=== PATIENT | male | born 1960 | race Caucasian/White ===

== ENCOUNTER 2025-06-23 19:06 | Emergency (ER) | payer OTHER, SELFPAY ==
[2025-06-23 19:06] VITALS: BP 176/91; PULSE 66; RESP 14; TEMP 36.6; O2SAT 99; BMI 25.2
--- NOTE | 2025-06-23 19:38 | EKG12_ITS ---
Test Reason : DYSRHYTHMIA Blood Pressure : */* mmHG Vent. Rate : 64 BPM Atrial Rate : 64 BPM P-R Int : 188 ms QRS Dur : 164 ms QT Int : 452 ms P-R-T Axes : 63 92 44 degrees QTcB Int : 466 ms Normal sinus rhythm Right bundle branch block Abnormal ECG Confirmed by ALEJANDRO GAR, CONNOR ([id number]), editor department AGA LEVI ([id number]) on 06/24/2025 11:00:28 AM Referred By: Confirmed By: CONNOR ALLEN MD
--- NOTE | 2025-06-23 19:41 | PCA ---
NO OLD EKG
[2025-06-23 20:00] VITALS: BP 185/100; BP 187/83; BP 191/93; PULSE 64; PULSE 71; PULSE 88
[2025-06-23 20:03] VITALS: BP 187/83; PULSE 62; RESP 14; O2SAT 99
[2025-06-23 20:06] LABS: Hematocrit 40.3 % (40-54); Hemoglobin 13.4 g/dL (13.0-16.5); Immature Granulocytes Count 0.020 X10^3/uL (0.0-0.0); Mean Corp Hgb Conc 33.3 g/dL (32-36); Mean Corpuscular Volume 84.0 fL (80-94); Mean Platelet Vol. 9.4 fl (6.2-12.0); NRBC Flagged by Analyzer 0 % (0-5); Platelet Count 290 K/mm3 (150-450); RBC Distribution Width CV 13.9 % (11.6-14.6); RBC Distribution Width SD 42.8 fl (35.1-43.9); Red Blood Count 4.80 M/mm3 (4.6-6.2); White Blood Count 8.2 K/mm3 (4.4-11.0)
[2025-06-23] MEDS: 0.9% Normal Saline (1000mL) 1,000 ML 1000 ML IV (20:10)
--- NOTE | 2025-06-23 20:36 | EX.ED.DYSGE1 ---
HPI History of Present Illness Chief Complaint: Weakness Detail of Chief Complaint: Generalized weakness, near syncope Informant: patient Onset/Context/Timing Onset: Hours Context: Sudden Onset Timing: Continuous Quality: Feels dizzy, which he cannot define Location: Not applicable Current Severity: Gone Maximum Severity: Moderate Worsened by: Upright and walking Relieved by: Resting and sitting on examination cot Associated Symptoms Associated Symptoms: Patient has not eaten all day Narrative Narrative: Patient is a 64-year-old male. He has not seen a physician in 15 to 20 years. He was at the [employer]. He walks several miles. He had a banana. He states he was dizzy . He is unable to define what dizzy means. He was asked if it is lightheadedness, he or the area spinning. He states it is none of those. He denies double vision, blurred vision or loss of vision. He no trouble with speech or swallowing. He denied numbness or tingling his upper or lower extremities. He denied weakness in his upper or lower extremities. He states he has some mild congestion. He denies rhinorrhea, postnasal drainage or sore throat. He denies cough or shortness of breath. He denies chest pain, pressure, tightness or heaviness. He denies pain with breathing. He has no history of VTE or risk factors. He denies abdominal pain. Did have nausea without vomiting or diarrhea. He denies urologic symptoms. He denies rash. He does endorse thirst, dry mouth. He states he had a banana with no improvement. Prior similar symptoms: No Recent Illness/Hospitalization: No PFSH PFSH Medical History no medical history no medical history Allergy/AdvReac Type Severity Reaction Status Date / Time No Known Allergies Allergy Verified 06/23/25 19:09 Surgical History no surgical history no surgical history Social History Smoking Status: Current every day smoker tobacco type: cigarettes ROS ROS ED Constitutional Constitutional ED: Denies chills, fever(s), subjective, sweats or weight loss Eyes Eyes: Denies blurry vision or change in vision ENT ENT ED: Denies ear pain, rhinorrhea or sore throat Cardiovascular Cardiovascular: Denies chest pain, palpitations or racing heartbeat Respiratory/Chest Respiratory/Chest: Denies cough, dyspnea or dyspnea on exertion Gastrointestinal Gastrointestinal: Reports nausea; Denies abdominal pain, diarrhea, melena or vomiting Genitourinary Genitourinary ED: Denies dysuria, hematuria or urinary frequency Musculoskeletal Musculoskeletal: Denies arthralgias, back pain or myalgias Integumentary Denies rash Neurologic Neurologic: Reports weakness; Denies headache(s) or paresthesias Psychiatric Psychiatric: Denies anxiety or depression Endocrine Endocrinology: Denies cold intolerance or heat intolerance Hematologic/Lymphatic Hematologic/Lymphatic: Reports systems reviewed and no addt'l complaints, except as documented EXAM Physical Exam Const Vital Signs: 06/23/25 19:06 06/23/25 19:17 06/23/25 20:00 Temperature 98 F Temperature Source Temporal Pulse Rate 66 Pulse Rate [Lying] 64 Pulse Rate [Sitting (for 1 minute prior to obtaining)] 71 Pulse Rate [Standing (for 1 minute prior to obtaining)] 88 Respiratory Rate 14 Respiratory Effort Normal Non-Labored Respiratory Pattern Normal Blood Pressure 176/91 H Blood Pressure [Lying] 185/100 H Blood Pressure [Sitting (for 1 minute prior to obtaining)] 191/93 H Blood Pressure [Standing (for 1 minute prior to obtaining)] 187/83 H Blood Pressure Mean 119 Blood Pressure Mean [Lying] 128 Blood Pressure Mean [Sitting (for 1 minute prior to obtaining)] 125 Blood Pressure Mean [Standing (for 1 minute prior to obtaining)] 117 Pulse Ox 99 Oxygen Delivery Method Room Air 06/23/25 20:03 Temperature Temperature Source Pulse Rate 62 Pulse Rate [Lying] Pulse Rate [Sitting (for 1 minute prior to obtaining)] Pulse Rate [Standing (for 1 minute prior to obtaining)] Respiratory Rate 14 Respiratory Effort Respiratory Pattern Blood Pressure 187/83 H Blood Pressure [Lying] Blood Pressure [Sitting (for 1 minute prior to obtaining)] Blood Pressure [Standing (for 1 minute prior to obtaining)] Blood Pressure Mean 117 Blood Pressure Mean [Lying] Blood Pressure Mean [Sitting (for 1 minute prior to obtaining)] Blood Pressure Mean [Standing (for 1 minute prior to obtaining)] Pulse Ox 99 Oxygen Delivery Method Positive well nourished and well developed Constitutional Narrative: Vital signs are remarkable elevated blood pressure and there is no change in heart rate. Ortho's were negative. General Appearance ED: well developed and NAD; Negative for cyanotic or diaphoretic HEENT Reports dry mucous membranes HEENT Narrative: Head is atraumatic and normocephalic. Ears are normal. Nares are patent. Mouth ED: Yes dry mucous membranes Mouth: dry mucous membranes Eyes PERRL and EOMs intact bilaterally General Eye ED: Negative for pale conjunctiva or scleral icterus Neck supple and no JVD Resp normal respiratory effort and clear to auscultation bilaterally Cardio regular rate, regular rhythm, S1 normal heart sound, S2 normal heart sound and no murmurs GI normal to inspection, nondistended, normoactive bowel sounds, non-tender, non-distended and no masses; Negative for hepatosplenomegaly GI Narrative: There is no palpable pulsatile mass. Back/Spine no CVA tenderness Extremity normal to inspection Extremity Narrative: Venous stasis dermatitis. He denies orthopnea. He does admit to sleeping in a chair at night when he falls asleep. General Extremety ED: Yes edema General Extremity: edema Neuro oriented x3, CN's II-XII intact bilaterally and no sensory deficits noted Sensorium / Orientation: alert Motor Exam: strength 5/5 throughout Psych mental status grossly normal Skin No no rashes or lesions noted, no wounds and skin turgor normal Skin Narrative: Venous stasis dermatitis and dry skin lower extremity MDM MDM MDM Narrative Medical decision making narrative: Suspect patient may be slightly dehydrated and lightheaded because he did not having to eat or drink the entire day and was at a [place]. Since he has not seen a physician in 15 years and is no records of anything available we will obtain CBC to assess H&H. Electrolyte panel assess electrolytes, renal function CO2 anion gap. Orthostatic vital signs. He will receive 1 L of normal saline Lab Data Attestation: I reviewed the patient's lab results. Lab results narrative: CBC is normal. BMP is normal. Total protein is slightly elevated 8.7. Labs: Laboratory Results - last 24 hr 06/23/25 19:50 WBC 8.2 RBC 4.80 Hgb 13.4 Hct 40.3 MCV 84.0 MCH 27.9 MCHC 33.3 RDW Std Deviation 42.8 RDW Coeff of Theodora 13.9 Plt Count 290 MPV 9.4 Immature Gran % (Auto) 0.200 Neut % (Auto) 60.8 Lymph % (Auto) 26.7 [place] % (Auto) 7.9 Eos % (Auto) 3.4 Baso % (Auto) 1.0 Absolute Neuts (auto) 5.0 Absolute Lymphs (auto) 2.19 Nucleated RBC % 0 Sodium 137 Potassium 4.3 Chloride 100 Carbon Dioxide 26.7 Anion Gap 10 BUN 13 Creatinine 0.87 Estim Creat Clear Calc 99.73 Est GFR (MDRD) Non-Af 96 BUN/Creatinine Ratio 14.9 Glucose 98 Calcium 9.4 Total Bilirubin 0.37 AST 28 ALT 13 Alkaline Phosphatase 115 Total Protein 8.7 H Albumin 4.0 Globulin 4.7 H Albumin/Globulin Ratio 0.9 Treatment and Re-Evaluation :: Patient's blood pressure is elevated. Since he does not have a physician he was referred to Dr. Huertas. Discharge Plan Triage Chief Complaint: Weakness ED Provider: Alexander Mckay Dx/Rx/DC Orders Clinical Impression: Dizziness, Elevated blood-pressure reading without diagnosis of hypertension, Dehydration, mild Instructions: ED Dizziness, Uncertain Cause, ED Hypertension, To Be Confirmed Primary Care Provider: Care Physician,No Primary Referrals: Julianna Huertas DO [Med Staff - Active Staff, Family Practice] - 1 Week Care Physician,No Primary [Primary Care Provider, Medical] Activity Restrictions/Additional Instructions: You have had several elevated blood pressure readings. You need to follow-up with Dr. Julianna Puckett for recheck in 1 week. If it remains elevated you will need medication. Print Language: Italian Disposition Disposition: Home, Self Care
[2025-06-23 20:40] LABS: AST(SGOT) 28 U/L (<=37); Alanine Aminotransfer ALT/SGPT 13 U/L (<=46); Albumin, Serum 4.0 g/dL (3.4-4.8); Alkaline Phosphatase 115 U/L (40-129); Anion Gap 10 (5-15); BUN 13 mg/dL (4-19); BUN/Creat Ratio 14.9 RATIO (10-20); Calcium,Total 9.4 mg/dL (7.6-11.0); Carbon Dioxide 26.7 mmol/L (21.0-32.0); Chloride 100 mmol/L (98-108); Estimated Creatinine Clearance 99.73 ml/min (50-250); Globulin 4.7 g/dL (2.2-4.2); Glucose 98 mg/dL (70-99); Potassium 4.3 mmol/L (3.3-5.1)
[2025-06-23 21:00] VITALS: PULSE 64; RESP 18; O2SAT 95
[2025-06-23 22:00] VITALS: BP 175/85; PULSE 63; RESP 17; O2SAT 100
[2025-06-23 22:14] VITALS: BP 175/85; PULSE 63; RESP 17; TEMP 36.8; O2SAT 100
== END 2025-06-23 22:16 | disposition home or self-care (01) ==
PROVIDERS: Emergency Provider Emergency Medicine; Visit Provider Emergency Medicine
DX: R42 Dizziness and giddiness (principal); R11.0 Nausea; E86.0 Dehydration; R03.0 Elevated blood-pressure reading, without diagnosis of hypertension; F17.210 Nicotine dependence, cigarettes, uncomplicated
CPT/HCPCS: 80053; 85025; 93005; 96360; 96361; 99285